=== PATIENT | female | born 1965 | race Caucasian/White ===

== ENCOUNTER → 2017-01-23 | Outpatient (CLI) | payer BC ==
[~2017-01-23] MED LIST: BCPILLS PO; CETI10TA84 PO; CYCL0.052 OP; HYDR25TA4 PO; LISI-729 PO; OMEP40CA41 PO; ONDA4TAB46 SL; XNX25 PO
--- NOTE | 2017-01-23 14:48 | MAMMOGRAPHY REPORT ---
UNILATERAL RIGHT DIGITAL DIAGNOSTIC MAMMOGRAM TOMOSYNTHESIS WITH CAD AND TARGETED RIGHT ULTRASOUND: CLINICAL HISTORY: 6 Month Follow-up Right. TECHNIQUE: Breast tomosynthesis in addition to standard 2D mammography was performed. Current study was also evaluated with a Computer Aided Detection (CAD) system. Right CC and MLO 2-D and tomosynthe sis images were obtained. COMPARISON: Comparison is made to exams dated: 07/24/2016 mammogram, 07/24/2016 ultrasound, 6 mammogram, 07/06/2015 mammogram, 07/05/2014 mammogram, and 07/01/2013 mammogram - [facility]. BREAST COMPOSITION: There are scattered areas of fibroglandular density in the right breast. FINDINGS: The previously seen nodular asymmetry seen within the superior anterior breast is less pro minent and no longer evident, and is therefore considered benign. The small nodular asymmetry seen w ithin the right posterior breast on the cc view is also less prominent. The remainder of the right b reast is stable compared to prior exams, without suspicious masses, calcifications, or areas of archi tectural distortion noted. Targeted ultrasound was performed of the area of the previously seen masses. In the right breast at 3:00 periareolar region, there is a small oval circumscribed benign-appearing 3 x 2 x 3 mm mass, not significantly changed compared to the prior exam where the mass measured 4 x 2 x 3 mm. Another simil ar appearing oval circumscribed nearly anechoic mass is seen within the right breast at 11:00 periare olar region measuring 4 x 2 x 3 mm, also stable compared to the July 2016 exam. Another similar appearing oval nearly anechoic circumscribed 3 x 3 x 2 mm mass is seen within the right 7:00 periareo lar region, also unchanged. The findings are benign given the stability and benign morphology and li yeni represent cysts. No suspicious solid masses are evident. IMPRESSION: ACR BI-RADS CATEGORY 2: BENIGN, TARGETED ULTRASOUND ACR BI-RADS CATEGORY 2: BENIGN The right breast asymmetries are less prominent mammographically. Small benign-appearing masses in t he right breast on ultrasound are stable compared to the July 2016 exam, and are considered benig n given the morphology and stability and likely represent small cysts. There is no mammographic or t argeted sonographic evidence of malignancy. Return to annual mammogram screening schedule is recommen ded, due July 2017. The patient has been verbally notified of the results. Approximately 10% of breast cancers are not detected with mammography. A negative mammographic report should not delay biopsy if a clinically suggestive mass is present. Elizabeth Bruno M.D. ah/:01/23/2017 08:53:40 Prefabricator: Jie PEDERSON)(Brien), [facility] letter sent: Normal 1/2 BI-RADS Code: ACR BI-RADS Category 2: Benign Ultrasound BI-RADS: ACR BI-RADS Category 2: Benign
== END | disposition home or self-care (01) ==
LOC: C.MAMM 08:24
PROVIDERS: ATTEND Obstetrics & Gynecology
DX: N64.89 Other specified disorders of breast (principal); R92.2 Inconclusive mammogram

== ENCOUNTER → 2017-07-15 | Outpatient (CLI) | payer BC ==
--- NOTE | 2017-07-16 07:47 | MAMMOGRAPHY REPORT ---
BILATERAL DIGITAL SCREENING MAMMOGRAM TOMOSYNTHESIS WITH CAD: 07/15/2017 CLINICAL HISTORY: Routine screening. Patient has no complaints. TECHNIQUE: Breast tomosynthesis in addition to standard 2D mammography was performed. Current study was also evaluated with a Computer Aided Detection (CAD) system. COMPARISON: Comparison is made to exams dated: 01/23/2017 ultrasound, 01/23/2017 mammogram, 07/24/2016 mammogram, 07/24/2016 ultrasound, 07/11/2016 mammogram, and 07/06/2015 mammogram - [facility]. BREAST COMPOSITION: There are scattered areas of fibroglandular density in both breasts. FINDINGS: There is decreased nodularity throughout the right breast and stable nodularity in the lat eral left breast. No suspicious mass, architectural distortion or cluster of suspicious microcalcifi cations is seen. IMPRESSION: ACR BI-RADS CATEGORY 1: NEGATIVE There is no mammographic evidence of malignancy. A 1 year screening mammogram is recommended. The pa tient will receive written notification of the results. Approximately 10% of breast cancers are not detected with mammography. A negative mammographic report should not delay biopsy if a clinically suggestive mass is present. Beth Garcia M.D. ay/:07/15/2017 09:00:15 Wine Consultant: Nerissa Eckert, [facility] letter sent: Normal 1/2 BI-RADS Code: ACR BI-RADS Category 1: Negative
== END | disposition home or self-care (01) ==
LOC: C.MAMM 08:15
PROVIDERS: ATTEND Obstetrics & Gynecology
DX: Z12.31 Encounter for screening mammogram for malignant neoplasm of breast (principal)

== ENCOUNTER 2017-07-29 20:09 | Emergency (ER) | payer BC ==
[~2017-07-29] VITALS: Ht 162.6 cm; Wt 71.1 kg
[~2017-07-29 20:09] MED LIST changes: -CYCL0.052 OP; +CYCL0.052 OPB
[2017-07-29 20:18] VITALS: TEMP 36.5; Ht 162.6 cm; Wt 71.1 kg
[2017-07-29] MEDS ORDERED: OXYCODONE IR HOME PACK PO STA (20:26)
[2017-07-29] MEDS ORDERED: OXYCODONE HCL IR 5 MG TAB (IMMEDIATE RELEASE) PO STA (20:26)
[2017-07-29] MEDS ORDERED: NORE0.1T PO (20:43)
[2017-07-29] MEDS ORDERED: CALC1CAP36 PO (20:43)
[2017-07-29] MEDS ORDERED: LSN5 PO (20:43)
[2017-07-29] MEDS ORDERED: CHOL1CAP57 PO (20:43)
[2017-07-29] MEDS ORDERED: FLNIN/ NAE (20:43)
[2017-07-29] MEDS ORDERED: LXP10 PO (20:43)
--- NOTE | 2017-07-29 20:43 | DIAGNOSTIC IMAGING REPORT ---
L FOOT MIN 3 VIEWS ROUTINE CLINICAL HISTORY: 52 years-old Female presenting with Dog bite L foot, now pain and swelling. TECHNIQUE: Frontal, oblique, and lateral views of the left foot were obtained. COMPARISON: None. FINDINGS: No radiographic evidence of subcutaneous emphysema or gross irregularity of the cutis to localize the site of injury. No acute fracture or malalignment. Os peroneum noted. IMPRESSION: No acute osseous injury of the left foot. Electronically signed by: Dallin Lebron M.D. 07/29/2017 8:42 PM Dictated Date/Time: 07/29/2017 8:41 PM
--- NOTE | 2017-07-29 20:56 | EMERGENCY ROOM VISIT NOTE ---
History First contact with patient: 20:22 Chief Complaint: FOOT PAIN Stated Complaint: LEFT FOOT PAIN, CAN'T WALK ON IT History of Present Illness The patient is a 52 year old female who presents to the Emergency Room via private vehicle accompanied by male with complaints of "left foot pain, can't walk on it". The patient states that on Saturday her dog who is up-to-date on vaccinations playfully bit her right foot. She states that there was a small open area and she cleaned the area however now today she has exquisite pain in that region. She notes redness, swelling. There has been no nausea, vomiting or fevers. Her tetanus is up-to-date. She rates the overall pain as a 10/10. Review of Systems A complete 6-point Review of Systems was discussed with the patient, with pertinent positives and negatives listed in the History of Present Illness. All remaining Review of Systems questions can be considered negative unless otherwise specified. Past Medical/Surgical History Medical Problems: (1) Brain tumor (2) HTN (hypertension) (3) IBS (irritable bowel syndrome) (4) Ulcer Surgical Problems: (1) H/O tubal ligation Family History Cancer Diabetes mellitus Gallbladder disease Heart disease Hypertension Kidney disease or stones Social History Smoking Status: Former Smoker Alcohol Use: none Drug Use: none Marital Status: Housing Status: lives with family Occupation Status: employed Current/Historical Medications Scheduled Amoxicillin & Pot Clavulanate (Augmentin 875-125 mg), 1 TAB PO BID Calcitriol (Calcitriol), 0.25 MG PO DAILY Cetirizine (Zyrtec), 10 MG PO HS Cholecalciferol (Vitamin D3), 1,000 INTER.UNIT PO DAILY Cyclosporine (Ophth) (Restasis), 1 DROP OPB BID Lisinopril (Lisinopril), 5 MG PO DAILY Norethindrone & Eth Estradiol (Alyacen ), 1 TAB PO DAILY Omeprazole (Prilosec), 40 MG PO DAILY Scheduled PRN Escitalopram Oxalate (Escitalopram Oxalate), 10 MG PO DAILY PRN for Anxiety Fluticasone Propionate (Fluticasone Propionate), 2 SPRAYS TK DAILY PRN for Allergy Symptoms Oxycodone Ir (Roxicodone Ir), 1-2 TAB PO Q4H PRN for Pain Physical Exam Vital Signs Date Time Temp Pulse Resp B/P (MAP) Pulse Ox O2 Delivery O2 Flow Rate FiO2 07/29/17 22:29 70 16 190/100 100 Room Air 07/29/17 20:18 36.5 79 18 194/105 97 Room Air Physical Exam VITAL SIGNS - Vital signs and nursing notes were reviewed. Hypertensive. GENERAL -52-year-old female appearing her stated age who is in no acute distress. Communicates well with provider and answers questions appropriately. SKIN - the right foot exhibits a 1 cm puncture/laceration wound on the right distal lateral aspect. This is just proximal to the MCPs. There is erythema, and edema. The region was outlined with a felt tip pen. There is bony tenderness. Decreased range of motion of the fourth and fifth toes secondary to pain. EXTREMITIES - No clubbing or peripheral cyanosis. No pretibial edema present. Tenderness of the foot. Redness noted. No evidence of fracture. No retained foreign body appreciated. She is neurovascularly intact in this region. +5/5 strength noted in UE/LE bilaterally. Medical Decision & Procedures ER Provider Diagnostic Interpretation: L FOOT MIN 3 VIEWS ROUTINE CLINICAL HISTORY: 52 years-old Female presenting with Dog bite L foot, now pain and swelling. TECHNIQUE: Frontal, oblique, and lateral views of the left foot were obtained. COMPARISON: None. FINDINGS: No radiographic evidence of subcutaneous emphysema or gross irregularity of the cutis to localize the site of injury. No acute fracture or malalignment. Os peroneum noted. IMPRESSION: No acute osseous injury of the left foot. Electronically signed by: Dallin Lebron M.D. 07/29/2017 8:42 PM Dictated Date/Time: 07/29/2017 8:41 PM Laboratory Results 07/29/17 21:12 Red Blood Count 4.30, Mean Corpuscular Volume 91.6, Mean Corpuscular Hemoglobin 30.5, Mean Corpuscular Hemoglobin Concent 33.2, Mean Platelet Volume 12.4, Neutrophils (%) (Auto) 66.2, Lymphocytes (%) (Auto) 24.8, Monocytes (%) (Auto) 6.7, Eosinophils (%) (Auto) 2.0, Basophils (%) (Auto) 0.2, Neutrophils # (Auto) 6.69, Lymphocytes # (Auto) 2.50, Monocytes # (Auto) 0.68, Eosinophils # (Auto) 0.20, Basophils # (Auto) 0.02 07/29/17 21:12 Test 07/29/17 21:12 White Blood Count 10.10 K/uL (4.8-10.8) Red Blood Count 4.30 M/uL (4.2-5.4) Hemoglobin 13.1 g/dL (12.0-16.0) Hematocrit 39.4 % (37-47) Mean Corpuscular Volume 91.6 fL (80-100) Mean Corpuscular Hemoglobin 30.5 pg (25-34) Mean Corpuscular Hemoglobin Concent 33.2 g/dl (32-36) Platelet Count 221 K/uL (130-400) Mean Platelet Volume 12.4 fL (7.4-10.4) Neutrophils (%) (Auto) 66.2 % Lymphocytes (%) (Auto) 24.8 % Monocytes (%) (Auto) 6.7 % Eosinophils (%) (Auto) 2.0 % Basophils (%) (Auto) 0.2 % Neutrophils # (Auto) 6.69 K/uL (1.4-6.5) Lymphocytes # (Auto) 2.50 K/uL (1.2-3.4) Monocytes # (Auto) 0.68 K/uL (0.11-0.59) Eosinophils # (Auto) 0.20 K/uL (0-0.5) Basophils # (Auto) 0.02 K/uL (0-0.2) RDW Standard Deviation 47.0 fL (36.4-46.3) RDW Coefficient of Variation 14.0 % (11.5-14.5) Immature Granulocyte % (Auto) 0.1 % Immature Granulocyte # (Auto) 0.01 K/uL (0.00-0.02) Erythrocyte Sedimentation Rate 14 mm/hr (0-21) Anion Gap 5.0 mmol/L (3-11) Est Creatinine Clear Calc Drug Dose 56.0 ml/min Estimated GFR () 63.8 Estimated GFR (Non- 55.0 BUN/Creatinine Ratio 15.1 (10-20) Calcium Level 8.9 mg/dl (8.5-10.1) C-Reactive Protein 1.50 mg/dl (0-0.29) Medications Administered Medications (Trade) Dose Ordered Sig/Luis Route Start Time Stop Time Status Last Admin Dose Admin Oxycodone HCl (Roxicodone Immediate Rel 5MG Home Pack) 1 homepack UD STAT PO 07/29/17 20:26 07/29/17 20:27 DC 07/29/17 20:35 1 HOMEPACK Oxycodone HCl (Roxicodone Immediate Rel Tab) 5 mg NOW STAT PO 07/29/17 20:26 07/29/17 20:27 DC 07/29/17 20:35 5 MG Sodium Chloride 1,000 ml @ 999 mls/hr Q1H1M STAT IV 07/29/17 20:58 07/29/17 21:58 DC 07/29/17 21:17 999 MLS/HR Ampicillin Sodium/ Sulbactam Sodium 3000 mg/Sodium Chloride 108 ml @ 200 mls/hr NOW STAT IV 07/29/17 20:58 07/29/17 21:30 DC 07/29/17 21:17 200 MLS/HR Medical Decision Patient was seen and evaluated as above. She presents to us today with L foot pain. X-ray was obtained. No acute fracture dislocation or foreign body. IV access was initiated, and the above workup was performed. This is secondary to the cellulitic nature of the foot. CBC reveals no leukocytosis or concerning anemia. ESR normal at 14. Metabolic panel normal. Patient appears to be slightly dehydrated. C-reactive protein at 1.5. I suspect the patient likely has a cellulitis secondary from the dog bite. I do not suspect osteomyelitis or tendon infection at this time. She was given 3 g Unasyn and fluids. She appears stable for outpatient management with Augmentin. The region was outlined with a felt tip pen and she is to return if this worsens or she develops nausea, vomiting or other symptoms. She was informed that the redness may spread some and that is in the time that the antibiotics may take to come effective. She was informed that if she gets red streaking or problems she is to return. She was told to return in 2 days for recheck. She was educated upon management, educated upon worrisome symptoms which to return, had questions answered prior to discharge, was given a postop shoe as well as crutches and oxycodone for pain and was discharged home in good condition. No red Flags identified and the [place] drug monitoring system. In evaluation treatment this patient following differential diagnoses were entertained: Fracture, dislocation, retained foreign body, infection, among others. Impression Primary Impression: Foot pain Additional Impressions: Dog bite of left foot Cellulitis of left foot Departure Information Dispostion Home / Self-Care Condition GOOD Prescriptions Amoxicillin & Pot Clavulanate (Augmentin 875-125 mg) 1 Tab Tab 1 TAB PO BID for 9 Days, #18 TAB Prov: Emmett Montoya PA-C 07/29/17 Oxycodone Ir (Roxicodone Ir) 5 Mg Tab 1-2 TAB PO Q4H Y for Pain, #15 TAB For Initial Treatment Prov: Emmett Montoya PA-C 07/29/17 Referrals Miles Khan M.D. (PCP) Patient Instructions My [facility] Additional Instructions You have been treated in the Emergency Department for a left foot pain. I believe you have an infection of her left foot from the dog bite. You have received pain medicine in the emergency department which impairs your ability to operate a vehicle. It is illegal for you to drive after receiving these medicines. You have been prescribed Oxy IR to be used for pain control. This is a narcotic medication. You cannot drive or consume alcohol while on this medicine. This medicine should only be used for pain that cannot be controlled with over-the- counter pain medicines. Please follow-up with your family doctor for your elevated blood pressure. Augmentin for the infection. 1 tablet every 12 hours. For pain control, you can use the following [id number] medicines (if >12 yo): - Regular strength (325mg/tab) Tylenol (acetaminophen) 2 tabs every 4-6 hours as needed. Do not exceed 12 tablets in a 24 hour period. Avoid taking more than 3 grams (3000 mg) of Tylenol per day. This includes any other sources of acetaminophen you may take on a regular basis. - Regular strength (200 mg/tab) Advil (ibuprofen) 1-2 tabs every 4-6 hours as needed. Do not exceed a dose of 3200 mg per day. If this is a recent injury (<24 hrs), ice can be applied to the area of pain for the first 3 days to help decrease pain and inflammation. Please either return here or follow with your family doctor for reevaluation in 2 days of the wound. Return to the Emergency Department if your current symptoms worsen despite treatment course outlined above, or if you develop any of the following symptoms : intractable pain despite aforementioned treatment course or new onset of numbness or tingling of the foot or increased redness, swelling, drainage or fevers. Problem Qualifiers
[2017-07-29] MEDS ORDERED: SODIUM CHLORIDE 0.9% 1000ML 1,000 ML IV STA (20:58)
[2017-07-29] MEDS ORDERED: AMPICILLIN/SULBACTAM SOD INJ 3,000 MG in SODIUM CHLORIDE 0.9% 100ML 100 ML IV STA (20:58)
[2017-07-29 21:23] LABS: BASO % 0.2 %; BASO ABS # 0.02 K/uL (0-0.2); COMPLETE YES; HEMATOCRIT 39.4 % (37-47); IG% 0.1 %; LYMPH % 24.8 %; MEAN CELL VOLUME 91.6 fL (80-100); MEAN CORPUSCULAR HEMOGLOBIN 30.5 pg (25-34); MEAN CORPUSCULAR HGB CONC 33.2 g/dl (32-36); MEAN PLATELET VOLUME 12.4 fL (7.4-10.4); MONO % 6.7 %; NEUT % 66.2 %; PLATELET COUNT 221 K/uL (130-400)
[2017-07-29 21:47] LABS: BUN/CREATININE RATIO 15.1 (10-20); C-REACTIVE PROTEIN 1.5 mg/dl (0-0.29); CALCIUM 8.9 mg/dl (8.5-10.1); CREATININE 1.15 mg/dl (0.60-1.20); POTASSIUM 3.7 mmol/L (3.5-5.1)
[2017-07-29] MEDS ORDERED: AMOXICIL/CLAVU 875MG HOME PACK PO STA (21:52)
[2017-07-29] MEDS ORDERED: AMOX875T PO (22:07)
[2017-07-29] MEDS ORDERED: OXYC1TAB3 PO (22:07)
[2017-07-29 22:29] VITALS: BP 190/100; PULSE 70; O2SAT 100
== END 2017-07-29 22:40 | disposition home or self-care (01) ==
LOC: C.EDB 20:10 → C.EDD 22:40
DX: M79.672 Pain in left foot (principal); L03.116 Cellulitis of left lower limb; W54.0XXA Bitten by dog, initial encounter; I10 Essential (primary) hypertension; K58.9 Irritable bowel syndrome, unspecified; Z86.011 Personal history of benign neoplasm of the brain; Z86.19 Personal history of other infectious and parasitic diseases; Z98.51 Tubal ligation status; Z87.891 Personal history of nicotine dependence; Z79.899 Other long term (current) drug therapy; Z80.9 Family history of malignant neoplasm, unspecified; Z83.3 Family history of diabetes mellitus; Z83.79 Family history of other diseases of the digestive system; Z82.49 Family history of ischemic heart disease and other diseases of the circulatory system; Z84.1 Family history of disorders of kidney and ureter